=== PATIENT | female | born 2000 | race Two or more races ===

== ENCOUNTER 2025-08-16 03:22 | Inpatient (IN) | payer MEDICAID, OTHER ==
[~2025-08-16] VITALS: Ht 160 cm; Wt 80.0 kg
--- NOTE | 2025-08-16 03:58 | DVH ---
CHEST RADIOGRAPH Indication: cp Technique: Single frontal view of the chest was obtained Comparison: None FINDINGS: Lines and Tubes: None Lungs: No focal consolidation. Pleura: No effusion. No pneumothorax. Cardiomediastinal contours: Unremarkable Bones: No acute osseous abnormality. IMPRESSION: No acute cardiopulmonary disease.
[2025-08-16 04:14] LABS: Hematocrit 41.4 % (36.0-46.0); Hemoglobin 14.1 g/dL (12.2-16.2); Mean Corpuscular Hemoglobin 31.4 pg (28.0-32.0); Mean Corpuscular Volume 92.1 fL (80.0-100.0); Nucleated Red Blood Cells % 0.0 %
[2025-08-16 04:33] LABS: Chloride 106 mmol/L (98-107); Potassium 4.0 mmol/L (3.5-5.1); Sodium 141 mmol/L (136-145)
[2025-08-16 04:34] LABS: Anion Gap 9 (5-15); Carbon Dioxide 26 mmol/L (20-31)
[2025-08-16 04:35] LABS: Calcium 9.3 mg/dL (8.7-10.4)
[2025-08-16 04:39] LABS: Glucose 86 mg/dL (74-106)
[2025-08-16 04:40] LABS: BUN/Creatinine Ratio 14.5 (10.0-20.0); Blood Urea Nitrogen 10 mg/dL (9-23)
--- NOTE | 2025-08-16 04:46 | ECG ---
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
--- NOTE | 2025-08-16 05:19 | ED.PDOC ---
History of Present Illness HPI Comments 23-year-old female who presents to the emergency department with chest pain that woke her from her sleep. Patient has started a proximally 15 minutes prior to arrival. Present left side of her chest, squeezing like in quality, 7/10 in severity, nonradiating, has been constant since this started. Patient denies any recent illness. She denies any associated lightheadedness, dizziness, palpitations, shortness of breath or diaphoresis associated with the chest pain. No recent travel. No recent procedures. She does have an IUD in place. She has a history of asthma however she states his pain is not similar to asthma symptoms. At this time she does not have a PCP. She has no family history of coronary artery disease. She denies any drug, alcohol,, vaping. REVIEW OF SYSTEMS: General: No fever, no chills, HEENT: No neck pain, no blurred vision Cardiac: + chest pain. No palpitations. Lungs: No shortness of breath, GI: No abdominal pain, no vomiting Musculoskeletal: No joint pain , no back pain Skin: No rash, no wound Neuro: No headache, no dizziness, no syncope PHYSICAL EXAM: General: Awake, alert and oriented. No acute distress. Skin: Skin in warm, dry and intact without rashes or lesions. HEENT: The head is normocephalic and atraumatic. Conjunctivae are clear without exudates or hemorrhage. Sclera is non-icteric. Neck: Normal range of motion. No JVD. Cardiac: Regular rate Respiratory: No signs of respiratory distress. No Stridor. Extremities: Upper and lower extremities are atraumatic in appearance without deformity. Neurological: The patient is awake, alert and oriented to person, place, and time with normal speech. Speech is clear. There is no facial asymmetry. Psychiatric: Patient appears anxious and has a tearful affect Chief Complaint: Chest Pain Time Seen by MD: 03:41 Allergies: Coded Allergies: NO KNOWN ALLERGIES (Unverified , 08/16/25) Mode of Arrival: Ambulatory EKG EKG : Comments Sinus rhythm, rate of 72, no STEMI. Differential Dx Considerations may include: Differential diagnoses considered include acute ischemic coronary syndrome, aortic dissection, cardiac tamponade, mediastinitis, pulmonary embolus, pneumothorax, tension pneumothorax, esophageal rupture, coronary artery vasospasm, myocarditis, pericarditis, pneumonia, pulmonary edema, esophageal tear, pancreatitis, aortic stenosis, dilated cardiomyopathy, hypertrophic cardiomyopathy, mitral valve prolapse, malignancy, pleuritis, pneumomediastinum, primary pulmonary hypertension, cholecystitis, esophageal spasm, esophagus, gastritis, GERD, peptic ulcer disease, costochondritis, fibromyalgia, rib fracture, herpes zoster, radicular syndromes, thoracic outlet syndrome, somatization. X-Ray, Labs, Meds, VS Vital Signs Date Time Temp Pulse Resp B/P (MAP) Pulse Ox O2 Delivery O2 Flow Rate FiO2 08/16/25 06:55 102 20 117/79 (92) 100 08/16/25 06:25 80 08/16/25 05:53 98.1 88 16 125/76 (92) 99 98.1 08/16/25 05:53 88 16 99 Room Air 08/16/25 05:44 18 99 Room Air* 0 21 08/16/25 04:42 78 08/16/25 03:31 72 08/16/25 03:26 97.2 93 20 138/105 100 97.2 Lab Test 08/16/25 07:11 08/16/25 04:38 08/16/25 03:49 Range/Units Erythrocyte Sedimentation Rate 5 0-20 mm/hr Hemoglobin A1c 4.7 <5.7 % A1C Phosphorus Level 2.9 2.4-5.1 mg/dL Magnesium Level 2.1 1.6-2.6 mg/dL Troponin I High Sensitivity < 3 L 97 *H < 3 L </=34 ng/L C-Reactive Protein High Sensitivity 0.06 <1.0 mg/dL Triglycerides Level 95 < 150 mg/dL Cholesterol Level 154 < 200 mg/dL LDL Cholesterol 88 < 100 mg/dL HDL Cholesterol 58 40-59 mg/dL Thyroid Stimulating Hormone (TSH) 2.41 0.55-4.78 uIU/mL D-Dimer, Quantitative < 0.19 0.0-0.49 mg/L FEU White Blood Count 11.4 H 4.4-10.8 10^3/uL Red Blood Count 4.49 4.0-5.20 10^6/uL Hemoglobin 14.1 12.2-16.2 g/dL Hematocrit 41.4 36.0-46.0 % Mean Corpuscular Volume 92.1 80.0-100.0 fL Mean Corpuscular Hemoglobin 31.4 28.0-32.0 pg Mean Corpuscular Hemoglobin Concent 34.1 32.0-36.0 g/dL Red Cell Distribution Width 13.2 11.8-14.3 % Platelet Count 385 140-450 10^3/uL Mean Platelet Volume 7.4 6.9-10.8 fL Neutrophils (%) (Auto) 70.4 37.0-80.0 % Lymphocytes (%) (Auto) 18.8 10.0-50.0 % Monocytes (%) (Auto) 9.4 0.0-12.0 % Eosinophils (%) (Auto) 0.9 0.0-7.0 % Basophils (%) (Auto) 0.5 0.0-2.0 % Neutrophils # (Auto) 8.1 1.6-8.6 10 ^3/uL Lymphocytes # (Auto) 2.2 0.4-5.4 10 ^3/uL Monocytes # (Auto) 1.1 0-1.3 10 ^3/uL Eosinophils # (Auto) 0.1 0-0.8 10 ^3/uL Basophils # (Auto) 0.1 0-0.2 10 ^3/uL Nucleated Red Blood Cells 0.0 % Sodium Level 141 136-145 mmol/L Potassium Level 4.0 3.5-5.1 mmol/L Chloride Level 106 98-107 mmol/L Carbon Dioxide Level 26 20-31 mmol/L Anion Gap 9 5-15 Blood Urea Nitrogen 10 9-23 mg/dL Creatinine 0.69 0.550-1.02 mg/dL Glomerular Filtration Rate Calc 125 >90 mL/min BUN/Creatinine Ratio 14.5 10.0-20.0 Serum Glucose 86 74-106 mg/dL Calcium Level 9.3 8.7-10.4 mg/dL B-Type Natriuretic Peptide 3.37 0-100 pg/mL Current Medications Medications (Trade) Dose Ordered Sig/Pablito Route Start Time Stop Time Status Last Admin Aspirin 324 mg ONCE ONCE PO 08/16/25 04:45 08/16/25 04:46 DC 08/16/25 06:13 Acetaminophen (Tylenol Tablet Or Capsule) 1,000 mg ONCE ONCE PO 08/16/25 04:45 08/16/25 04:46 DC 08/16/25 06:13 Al Hydrox/Mg Hydrox/Simethicone (Maalox Plus) 30 ml ONCE ONCE PO 08/16/25 04:45 08/16/25 04:46 DC 08/16/25 06:12 Lidocaine HCl (Xylocaine 2% Viscous) 10 ml ONCE ONCE PO 08/16/25 04:45 08/16/25 04:46 DC 08/16/25 06:12 Albuterol (Ventolin Medneb) 2.5 mg ONCE ONCE NEB 08/16/25 05:15 08/16/25 05:20 DC 08/16/25 05:44 Ondansetron HCl (Zofran) 4 mg ONCE ONCE IV 08/16/25 07:00 08/16/25 07:01 DC 08/16/25 07:06 PATIENT: ZAYRA TOWNSEND ACCT: [id number] UNIT: [id number] : 2000 LOC: ER ROOM / BED: / AGE / SEX: 24 / F ADM STATUS: REG ER SERVICE 0338 ORDERING PHYSICIAN: ASHLEY VICTORIA MD PROCEDURE(s): CXR1 - CHEST XRAY 1 VIEW REASON: cp ORDER NUMBER(s): [id number], ACCESSION NUMBER(s): [id number] CHEST RADIOGRAPH Indication: cp Technique: Single frontal view of the chest was obtained Comparison: None FINDINGS: Lines and Tubes: None Lungs: No focal consolidation. Pleura: No effusion. No pneumothorax. Cardiomediastinal contours: Unremarkable Bones: No acute osseous abnormality. IMPRESSION: No acute cardiopulmonary disease. Time of 1ST Reevaluation: 05:18 Reevaluation 1ST: Unchanged Patient Education/Counseling: Need For Follow Up Family Education/Counseling: No Family Present SEPSIS Sepsis Screen Date sepsis recognized/suspect: Aug 16, 2025 Time Sepsis recognized/suspect: 0326 Recent Procedure: No On Antibiotic Therapy: No Respiratory Rate >20: No Heart Rate >90: Yes Temp<36 C (96.8 F) or >38.3 C: No SBP <90 or MAP <65 mmHG: No New Acute Mental Status Change: No Is the patient on CPAP, BIPAP,: No Physician Orders Chest Xray 1 View (08/16/25 03:38) Vital Signs Q1HR (08/16/25 03:38) Timing Inspector (08/16/25 ) Vital Signs Date Time Temp Pulse Resp B/P (MAP) Pulse Ox O2 Delivery O2 Flow Rate FiO2 08/16/25 06:55 102 20 117/79 (92) 100 08/16/25 06:25 80 08/16/25 05:53 98.1 88 16 125/76 (92) 99 98.1 08/16/25 05:53 88 16 99 Room Air 08/16/25 05:44 18 99 Room Air* 0 21 08/16/25 04:42 78 08/16/25 03:31 72 08/16/25 03:26 97.2 93 20 138/105 100 97.2 Laboratory Tests Test 08/16/25 03:49 White Blood Count 11.4 10^3/uL (4.4-10.8) H Departure 1 Departure Time of Disposition: 05:55 Impression: Primary Impression: Chest pain Additional Impression: Elevated troponin Disposition: ADMITTED INPATIENT Condition: Stable Comments 24-year-old female who presented with chest pain. Elevated troponin. Patient admitted to hospitalist service for further treatment, evaluation and monitoring. Critical Care Note Critical Care Time?: No Stability Stability form required: No Heart Score Heart Score: Heart Score Response (Comments) Value History Slightly Suspicious 0 EKG Normal 0 Age <45 0 Risk Factors No known risk factors 0 Troponin Normal limit 0 Total 0 ASHLEY VICTORIA MD Aug 16, 2025 05:19
[2025-08-16] MEDS: ALBUTEROL SULF 2.5 MG/0.5ML(0.5%) NEB SOLN NEB ONE (05:44)
[2025-08-16] MEDS: LIDOCAINE VISCOUS 2% 15ML UD PO ONE (06:12)
[2025-08-16] MEDS: MAALOX PLUS or MAALOX 30 ML PO ONE (06:12)
[2025-08-16] MEDS: ACETAMINOPHEN 500 MG TAB or CAP PO ONE (06:13)
--- NOTE | 2025-08-16 06:39 | ECG ---
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
[2025-08-16] MEDS: ONDANSETRON HCL 4 MG/2 ML VIAL IV ONE (07:06)
[2025-08-16] MEDS ORDERED: MORPHINE SULFATE INJ 2 MG/ml SYRG IV PRN (08:30)
[2025-08-16] MEDS ORDERED: ONDANSETRON HCL 4 MG/2 ML VIAL IV PRN (08:30)
[2025-08-16] MEDS ORDERED: ACETAMINOPHEN 325 MG TAB PO PRN (08:30)
[2025-08-16] MEDS ORDERED: DOCUSATE SOD 100 MG CAP PO PRN (08:30)
--- NOTE | 2025-08-16 08:31 | DVHHP2 ---
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 Patient states the pain woke her up from her sleep. She tried drinking water to alleviate the pain with no success. She states the pain worsened prompting her to come to the hospital. She describes the pain as sharp and then transitioned to a burning pain, with associated nausea. At time of assessment she states her chest pain has improved after receiving medications from the ER. Pulmonary: Asthma Rheumatologic: Other ([place]asaki) Smoke: No ALCOHOL: none Drugs: None Lives: with Family Domestic Violence: Neg Review of Systems Constitutional: No: Fever, Chills, Sweats, Weakness, Malaise, Other Eyes: No: Pain, Vision change, Conjunctivae inflammation, Eyelid inflammation, Other, Redness ENT: No: Ear pain, Ear discharge, Nose pain, Nose discharge, Nose congestion, Mouth pain, Mouth swelling, Throat pain, Throat swelling, Other Respiratory: No: Cough, Dry, Shortness of breath, SOB with excertion, Wheezing, Hemoptysis, Pleuritic Pain, Sputum, Wheezing, Other Cardiovascular: Chest Pain; No: Palpitations, Orthopnea, Paroxysmal Noc. Dyspnea, Edema, Lt Headedness, Other Gastrointestinal: Nausea; No: Vomiting, Abdominal Pain, Diarrhea, Constipation, Melena, Hematochezia, Other Genitourinary: No Dysuria, No Frequency, No Incontinence, No Hematuria, No Retention, No Other Musculoskeletal: No: other, neck pain, shoulder pain, arm pain, back pain, hand pain, leg pain, foot pain Skin: No: Rash, Lesions, Jaundice, Bruising, Other Neurological: No: Weakness, Numbness, Incoordination, Change in speech, Confusion, Seizures, Other Allergies: Coded Allergies: NO KNOWN ALLERGIES (Unverified , 08/16/25) Medications Current Medications Medications Dose Ordered Sig/Pablito Route Start Time Stop Time Status Last Admin Dose Admin Acetaminophen/ Hydrocodone Bitart 1 tab Q4HP PRN PO 08/16/25 08:30 UNV Ondansetron HCl 4 mg Q4HP PRN IV 08/16/25 08:30 UNV Docusate Sodium 100 mg BIDPRN PRN PO 08/16/25 08:30 UNV Acetaminophen 650 mg Q6HP PRN PO 08/16/25 08:30 UNV Nitroglycerin 0.4 mg Q5MINP PRN SL 08/16/25 08:30 UNV Morphine Sulfate 2 mg Q30M PRN IV 08/16/25 08:30 UNV Exam Vital Signs Vital Signs Date Time Temp Pulse Resp B/P (MAP) Pulse Ox O2 Delivery O2 Flow Rate FiO2 08/16/25 06:55 102 20 117/79 (92) 100 08/16/25 05:53 98.1 98.1 08/16/25 05:53 Room Air 08/16/25 05:44 0 21 General Appearance: Alert, Oriented X3, Cooperative, mild distress HEENT: Atraumatic, PERRLA Respiratory: Clear to auscultation, Normal air movement Cardiovascular: Regular rate, Normal S1, Normal S2, No murmurs Abdominal: Normal bowel sounds, Soft, No tenderness Extremities: No clubbing, No cyanosis, No edema, Normal pulses Skin: No rashes, No breakdown, No significant lesion Neuro: Normal gait, Normal speech, Strength at 5/5 X4 ext, Normal tone Psych/Mental Status: Mental status NL, Mood NL Labs/Xrays Labs Test 08/16/25 07:11 08/16/25 04:38 08/16/25 03:49 Range/Units Erythrocyte Sedimentation Rate 5 0-20 mm/hr Troponin I High Sensitivity < 3 L </=34 ng/L C-Reactive Protein High Sensitivity 0.06 <1.0 mg/dL D-Dimer, Quantitative < 0.19 0.0-0.49 mg/L FEU White Blood Count 11.4 H 4.4-10.8 10^3/uL Red Blood Count 4.49 4.0-5.20 10^6/uL Hemoglobin 14.1 12.2-16.2 g/dL Hematocrit 41.4 36.0-46.0 % Mean Corpuscular Volume 92.1 80.0-100.0 fL Mean Corpuscular Hemoglobin 31.4 28.0-32.0 pg Mean Corpuscular Hemoglobin Concent 34.1 32.0-36.0 g/dL Red Cell Distribution Width 13.2 11.8-14.3 % Platelet Count 385 140-450 10^3/uL Mean Platelet Volume 7.4 6.9-10.8 fL Neutrophils (%) (Auto) 70.4 37.0-80.0 % Lymphocytes (%) (Auto) 18.8 10.0-50.0 % Monocytes (%) (Auto) 9.4 0.0-12.0 % Eosinophils (%) (Auto) 0.9 0.0-7.0 % Basophils (%) (Auto) 0.5 0.0-2.0 % Neutrophils # (Auto) 8.1 1.6-8.6 10 ^3/uL Lymphocytes # (Auto) 2.2 0.4-5.4 10 ^3/uL Monocytes # (Auto) 1.1 0-1.3 10 ^3/uL Eosinophils # (Auto) 0.1 0-0.8 10 ^3/uL Basophils # (Auto) 0.1 0-0.2 10 ^3/uL Nucleated Red Blood Cells 0.0 % Sodium Level 141 136-145 mmol/L Potassium Level 4.0 3.5-5.1 mmol/L Chloride Level 106 98-107 mmol/L Carbon Dioxide Level 26 20-31 mmol/L Anion Gap 9 5-15 Blood Urea Nitrogen 10 9-23 mg/dL Creatinine 0.69 0.550-1.02 mg/dL Glomerular Filtration Rate Calc 125 >90 mL/min BUN/Creatinine Ratio 14.5 10.0-20.0 Serum Glucose 86 74-106 mg/dL Calcium Level 9.3 8.7-10.4 mg/dL B-Type Natriuretic Peptide 3.37 0-100 pg/mL CHEST RADIOGRAPH FINDINGS: Lines and Tubes: None Lungs: No focal consolidation. Pleura: No effusion. No pneumothorax. Cardiomediastinal contours: Unremarkable Bones: No acute osseous abnormality. IMPRESSION: No acute cardiopulmonary disease. SEPSIS Sepsis Screen Date sepsis recognized/suspect: Aug 16, 2025 Time Sepsis recognized/suspect: 0553 Recent Procedure: No On Antibiotic Therapy: No Respiratory Rate >20: No Heart Rate >90: No Temp<36 C (96.8 F) or >38.3 C: No SBP <90 or MAP <65 mmHG: No New Acute Mental Status Change: No Is the patient on CPAP, BIPAP,: No Physician Orders Chest Xray 1 View (08/16/25 03:38) Vital Signs Q1HR (08/16/25 03:38) Tobacco Farmworker (08/16/25 ) Electrocardigram (08/16/25 06:38) Admit (08/16/25 08:24) Code Status (08/16/25 08:24) Hydrocodone-Acet 5/325mg Tab ([place] 5/32 (08/16/25 08:30) Ondansetron Hcl (Zofran) (08/16/25 08:30) Docusate Sodium Capsule (Colace Capsule) (08/16/25 08:30) Complete Blood Count (08/17/25 04:00) Comprehensive Metabolic Panel (08/17/25 04:00) Echo 2d Mode Cardiac Dop (08/16/25 08:24) Condition: Serious (08/16/25 08:24) Acetaminophen Tablet (Tylenol Tablet) (08/16/25 08:30) Nitroglycerin Sublingual (Ntrostat Subli (08/16/25 08:30) Morphine Sulfate Injection (08/16/25 08:30) Stat Ekg For Chest Pain (08/16/25 08:24) Notify Md Of Changes From Base (08/16/25 08:24) Wallpaper Printer For 24 Hours (08/16/25 08:24) Emergency Dysrhythmia Protocol (08/16/25 08:24) Rhythm Strips Once Every Shift (08/16/25 08:24) Oxygen By Nasal Cannula (08/16/25 08:24) * Cardiology Consult (08/16/25 08:24) Vital Signs Date Time Temp Pulse Resp B/P (MAP) Pulse Ox O2 Delivery O2 Flow Rate FiO2 08/16/25 06:55 102 20 117/79 (92) 100 08/16/25 06:25 80 08/16/25 05:53 98.1 88 16 125/76 (92) 99 98.1 08/16/25 05:53 88 16 99 Room Air 08/16/25 05:44 18 99 Room Air* 0 21 08/16/25 04:42 78 08/16/25 03:31 72 08/16/25 03:26 97.2 93 20 138/105 100 97.2 Laboratory Tests Test 08/16/25 03:49 White Blood Count 11.4 10^3/uL (4.4-10.8) H Medications Medications Dose Ordered Sig/Pablito Route Start Time Stop Time Status Last Admin Dose Admin Acetaminophen 1,000 mg ONCE ONCE PO 08/16/25 04:45 08/16/25 04:46 DC 08/16/25 06:13 1,000 MG Al Hydrox/Mg Hydrox/Simethicone 30 ml ONCE ONCE PO 08/16/25 04:45 08/16/25 04:46 DC 08/16/25 06:12 30 ML Albuterol 2.5 mg ONCE ONCE NEB 08/16/25 05:15 08/16/25 05:20 DC 08/16/25 05:44 2.5 MG Aspirin 324 mg ONCE ONCE PO 08/16/25 04:45 08/16/25 04:46 DC 08/16/25 06:13 324 MG Lidocaine HCl 10 ml ONCE ONCE PO 08/16/25 04:45 08/16/25 04:46 DC 08/16/25 06:12 10 ML Ondansetron HCl 4 mg ONCE ONCE IV 08/16/25 07:00 08/16/25 07:01 DC 08/16/25 07:06 4 MG Assessment/Plan Assessment/Plan Assessment: Elevated troponin, Possible pericarditis, Leukocytosis, Plan: Admit to Tele, Cardiology consult, ECHO, TSH, A1c, Lipid panel, IV hydration, Plan discussed with: Patient My Orders Orders - LOUISE KURTZ Procedure Category Date Status Time Admit ADMIT 08/16/25 Transmitted 08:24 Code Status CODE 08/16/25 Transmitted 08:24 Hydrocodone-Acet PHA 08/16/25 Logged 5/325mg Tab ([place] 08:30 Ondansetron Hcl PHA 08/16/25 Logged (Zofran) 08:30 Docusate Sodium PHA 08/16/25 Transmitted Capsule (Colace 08:30 Complete Blood Count LAB 08/17/25 Verified 04:00 Comprehensive LAB 08/17/25 Verified Metabolic Panel 04:00 Echo 2d Mode Cardiac US 08/16/25 Logged DOP 08:24 Condition: Serious YVONNE 08/16/25 In Process 08:24 Acetaminophen Tablet PHA 08/16/25 Logged (Tylenol Tablet) 08:30 Nitroglycerin PHA 08/16/25 Logged Sublingual (Ntrostat 08:30 Morphine Sulfate PHA 08/16/25 Logged Injection 08:30 Stat Ekg For Chest YVONNE 08/16/25 In Process Pain 08:24 Notify Md Of Changes [facility] 08/16/25 In Process From Base 08:24 Wallpaper Printer For [facility] 08/16/25 In Process 24 Hours 08:24 Emergency Dysrhythmia [facility] 08/16/25 In Process Protocol 08:24 Rhythm Strips Once [facility] 08/16/25 In Process Every Shift 08:24 Oxygen By Nasal RT 08/16/25 Transmitted Cannula 08:24 * Cardiology Consult CONS 08/16/25 Transmitted 08:24 Date of Service: Aug 16, 2025 Billing Provider: LOUISE KURTZ Common Visit Codes: [id number] INP/OBS CARE (MOD) LOUISE KURTZ Aug 16, 2025 08:31
[2025-08-16 09:11] VITALS: PULSE 74; RESP 20; O2SAT 98
[2025-08-16 09:56] LABS: Triglycerides 95 mg/dL (< 150)
[2025-08-16 09:57] LABS: HDL Cholesterol 58 mg/dL (40-59)
[2025-08-16 09:58] LABS: Cholesterol 154 mg/dL (< 200)
[2025-08-16] MEDS: HYDROcodone-ACET 5/325MG TAB PO PRN (10:37)
[2025-08-16 11:04] VITALS: BP 113/68; PULSE 67; RESP 18; TEMP 98.1; O2SAT 98
--- NOTE | 2025-08-16 11:19 | ECG ---
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
[2025-08-16 12:20] VITALS: PULSE 66; RESP 18; O2SAT 98
[2025-08-16 13:00] VITALS: BP 108/71; PULSE 73; RESP 16; TEMP 97.7; O2SAT 100
[2025-08-16] MEDS ORDERED: guaiFENesin-DM 100/10mg/5ml SYR PO PRN (13:00)
[2025-08-16 13:18] LABS: Cannabinoid Screen, Urine Neg (NEGATIVE); Opiate Scree,Urine Neg (NEGATIVE)
[2025-08-16 13:22] LABS: Magnesium 2.1 mg/dL (1.6-2.6)
[2025-08-16 13:45] LABS: Amphetamine Screen, Urine Neg (NEGATIVE); Barbiturate Scree,Urine Neg (NEGATIVE); Benzodiazephine Screen, Urine Neg (NEGATIVE); Cocaine Screen, Urine Neg (NEGATIVE); Phencyclidine Screen, Urine Neg (NEGATIVE)
[2025-08-16 13:53] LABS: INR 1.12 (0.9-1.15); Partial Thromboplastin Time 30.5 SEC (24.5-34.5); Prothrombin Time 11.7 sec (9.3-11.8)
[2025-08-16] MEDS: PANTOPRAZOLE 40 MG/10 ML VIAL INJ IV ONE (14:00)
[2025-08-16 14:02] LABS: Alanine Aminotransferase 15.0 U/L (7-40); Albumin 4.6 g/dL (3.2-4.8); Alkaline Phosphatase 75.0 U/L (46-116); Bilirubin, Direct 0.2 mg/dL (<0.3); Bilirubin, Total 0.6 mg/dL (0.2-1.0); Total Protein 7.6 g/dL (5.7-8.2)
--- NOTE | 2025-08-16 15:18 | DVHINCON2 ---
Date Seen: Aug 16, 2025 Referring Physician Gina Hermosillo NP Reason for Consultation Elevated troponin History of Present Illness Laura Jones is a 24-year-old female patient who presents to the ED with chief complaint of constant squeezing/burning retrosternal chest pain which woke her up at 2:30 a.m. on 08/16/2025 and lasted until 6:30 a.m. when she visited the emergency department and received medication(received Maalox and lidocaine, four aspirin in two Tylenol) intensity was 9-10/10, improved mildly when applying pressure to her chest and completely relieved with medication provided in emergency department, no worsening precipitating factors, associated with palpitation. Patient also reports episode of loss of consciousness after she was given in peripheral IV with prodromes (blurry vision, dizziness, feeling faint). She says that she has never felt these symptoms previously. Denies fever, chills, sick contacts, dyspnea, flu-like symptoms or motor or sensory deficits. Cardiology was consulted for elevated troponin (<3-97-<3). Past medical history: Asthma, Kawasaki in three opportunities (age [age], [age] in 11 years of age), per patient she was treated immediately, ovarian cyst, she presents normal periods (periods last five days, 30 day cycle, she has a copper IUD) she is sexually active with one partner for the past two years negative STIs (she tests once every three months). Surgical history: Denies Family history: Breast cancer in grandmother Social history: Lives in [place] with family (next of kin is mother). Denies current tobacco, alcohol and other drug abuse Allergies: Denies Home medication: Albuterol PRN Patient seen and examined at bedside. Currently has no new complaints. Past Medical History Per HPI Past Surgical History Per HPI Family History: FH: lupus G8 MOTHER Family History Per HPI Social History Per HPI Allergies: Coded Allergies: NO KNOWN ALLERGIES (Unverified , 08/16/25) Allergies Per HPI Current Medications Current Medications Medications (Trade) Dose Ordered Sig/Pablito Route PRN Reason Start Time Stop Time Status Last Admin Acetaminophen/ Hydrocodone Bitart ([place] 5/325MG Tab) 1 tab Q4HP PRN PO MODERATE PAIN (4-6 PAIN SCALE) 08/16/25 08:30 08/16/25 10:37 Ondansetron HCl (Zofran) 4 mg Q4HP PRN IV NAUSEA / VOMITING 08/16/25 08:30 Docusate Sodium (Colace Capsule) 100 mg BIDPRN PRN PO FOR CONSTIPATION 08/16/25 08:30 Acetaminophen (Tylenol Tablet) 650 mg Q6HP PRN PO PAIN SCALE 1-3 OR TEMP>100.4 08/16/25 08:30 Nitroglycerin (Ntrostat Sublingual) 0.4 mg Q5MINP PRN SL FOR CHEST PAIN 08/16/25 08:30 Morphine Sulfate 2 mg Q30M PRN IV FOR CHEST PAIN 08/16/25 08:30 Aspirin 81 mg DAILY PO 08/17/25 10:00 Atorvastatin Calcium (Lipitor) 40 mg HS PO 08/16/25 22:00 Pantoprazole Sodium (Protonix) 40 mg BID IV 08/16/25 22:00 Guaifenesin/ Dextromethorphan (Robitussin-Dm Liquid) 10 ml Q6HPRN PRN PO FOR COUGH 08/16/25 13:00 Review of Systems Per HPI Vital Signs Vital Signs Date Time Temp Pulse Resp B/P (MAP) Pulse Ox O2 Delivery O2 Flow Rate FiO2 08/16/25 13:00 97.7 73 16 108/71 (83) 100 97.7 08/16/25 09:11 Room Air* 0 21 Physical Exam Patient lying in bed, in no acute distress General: Lucid, afebrile, mucosae are moist Cardiovascular: Normal S1 and S2. No murmurs, gallops or rubs Respiratory: Normal ventilation mechanics. Clear lung sounds on auscultation Abdomen: Soft, nontender, no organomegaly, normal bowel sounds MSK/skin: Mobilizes 4 limbs. Skin is dry and warm Neurological: Oriented in 3 spheres. No motor no sensitive deficits. Pupils are isocoric and reactive Labs/Diagnostic Data Labs Test 08/16/25 13:19 08/16/25 12:38 08/16/25 07:11 08/16/25 04:38 Range/Units Prothrombin Time 11.7 9.3-11.8 sec Prothrombin Time INR 1.12 0.9-1.15 Activated Partial Thromboplast Time 30.5 24.5-34.5 SEC Total Bilirubin 0.6 0.2-1.0 mg/dL Direct Bilirubin 0.2 <0.3 mg/dL Aspartate Amino Transferase (AST) 17 13-40 U/L Alanine Aminotransferase (ALT) 15 7-40 U/L Alkaline Phosphatase 75 46-116 U/L Total Protein 7.6 5.7-8.2 g/dL Albumin 4.6 3.2-4.8 g/dL Vitamin B12 Level 633 211-911 pg/mL Vitamin D 25-Hydroxy 10.4 L 30.0-100 ng/mL Urine Opiates Screen Neg NEGATIVE Urine Fentanyl Screen Neg NEGATIVE Urine Barbiturates Screen Neg NEGATIVE Urine Phencyclidine Screen Neg NEGATIVE Urine Amphetamines Screen Neg NEGATIVE Urine Benzodiazepines Screen Neg NEGATIVE Urine Cocaine Screen Neg NEGATIVE Urine Cannabinoids Screen Neg NEGATIVE Erythrocyte Sedimentation Rate 5 0-20 mm/hr Hemoglobin A1c 4.7 <5.7 % A1C Phosphorus Level 2.9 2.4-5.1 mg/dL Magnesium Level 2.1 1.6-2.6 mg/dL Troponin I High Sensitivity < 3 L </=34 ng/L C-Reactive Protein High Sensitivity 0.06 <1.0 mg/dL Triglycerides Level 95 < 150 mg/dL Cholesterol Level 154 < 200 mg/dL LDL Cholesterol 88 < 100 mg/dL HDL Cholesterol 58 40-59 mg/dL Thyroid Stimulating Hormone (TSH) 2.41 0.55-4.78 uIU/mL D-Dimer, Quantitative < 0.19 0.0-0.49 mg/L FEU Test 08/16/25 03:49 Range/Units White Blood Count 11.4 H 4.4-10.8 10^3/uL Red Blood Count 4.49 4.0-5.20 10^6/uL Hemoglobin 14.1 12.2-16.2 g/dL Hematocrit 41.4 36.0-46.0 % Mean Corpuscular Volume 92.1 80.0-100.0 fL Mean Corpuscular Hemoglobin 31.4 28.0-32.0 pg Mean Corpuscular Hemoglobin Concent 34.1 32.0-36.0 g/dL Red Cell Distribution Width 13.2 11.8-14.3 % Platelet Count 385 140-450 10^3/uL Mean Platelet Volume 7.4 6.9-10.8 fL Neutrophils (%) (Auto) 70.4 37.0-80.0 % Lymphocytes (%) (Auto) 18.8 10.0-50.0 % Monocytes (%) (Auto) 9.4 0.0-12.0 % Eosinophils (%) (Auto) 0.9 0.0-7.0 % Basophils (%) (Auto) 0.5 0.0-2.0 % Neutrophils # (Auto) 8.1 1.6-8.6 10 ^3/uL Lymphocytes # (Auto) 2.2 0.4-5.4 10 ^3/uL Monocytes # (Auto) 1.1 0-1.3 10 ^3/uL Eosinophils # (Auto) 0.1 0-0.8 10 ^3/uL Basophils # (Auto) 0.1 0-0.2 10 ^3/uL Nucleated Red Blood Cells 0.0 % Sodium Level 141 136-145 mmol/L Potassium Level 4.0 3.5-5.1 mmol/L Chloride Level 106 98-107 mmol/L Carbon Dioxide Level 26 20-31 mmol/L Anion Gap 9 5-15 Blood Urea Nitrogen 10 9-23 mg/dL Creatinine 0.69 0.550-1.02 mg/dL Glomerular Filtration Rate Calc 125 >90 mL/min BUN/Creatinine Ratio 14.5 10.0-20.0 Serum Glucose 86 74-106 mg/dL Calcium Level 9.3 8.7-10.4 mg/dL B-Type Natriuretic Peptide 3.37 0-100 pg/mL Assessment Rule out ACS Ruled out pericarditis Noncardiac chest pain - likely GERD Situational/vasovagal syncope History of Kawasaki in three opportunities Asthma with no exacerbation Ovarian cyst Plan/Recommendation EKG shows normal sinus rhythm with no ST alteration. Troponin presents one mildly elevated value (<3 - 97 - <3). Noncardiac chest pain (burning squeezing which was continues in lasted for 4 hours and improved with pressure and Maalox/lidocaine) Ordered echocardiogram. Mild leukocytosis (11.4) ESR 5, CRP 0.06 (both negative). BNP and D-dimer is negative as well. Chest pain likely secondary to GERD. Continue with pantoprazole. Goals of care discussed with patient for over 18 minutes: Full code status Discussed plan with Dr. Myles, patient, family and nurses: We will ordered echocardiogram, hold off on therapeutic heparin, chest pain is likely secondary to GERD. Further management will be decided after obtaining echocardiogram. Admit patient to telemetry. Plan discussed with: Patient, Other (Aunt and nurses) NYHA Physical activity limitations: Class1(None)absent sob, Date of Service: Aug 16, 2025 Billing Provider: TREY MYLES Sr., MD Cardiology Common Codes: [id number] INP/OBS CARE (High) Cardiology Secondary Visit Cod: [id number] CARE PLAN 30 MINUTES JARON DIAZ RESIDENT Aug 16, 2025 15:18
[2025-08-16 16:55] VITALS: BP 116/64; PULSE 76; RESP 15; TEMP 97.8; O2SAT 99
[2025-08-16] MEDS: SODIUM CHLORIDE 0.9% 1,000 ML IV ONE (17:31)
[2025-08-16 21:00] VITALS: BP 111/71; PULSE 73; RESP 17; TEMP 97.9; O2SAT 100
[2025-08-16] MEDS: PANTOPRAZOLE 40 MG/10 ML VIAL INJ IV SCH (21:26)
[2025-08-16] MEDS: ATORVASTATIN 20 MG TAB PO SCH (21:29)
[2025-08-16] MEDS: NITROGLYCERIN 0.4 MG SL TAB SL PRN (22:15)
[2025-08-17] VITALS (9 sets, daily range): BP systolic 94–114; BP diastolic 54–69; PULSE 61–83; RESP 16–18; TEMP 98.1–98.5; O2SAT 96–99
[2025-08-17 06:04] LABS: Hematocrit 38.1 % (36.0-46.0); Hemoglobin 13.2 g/dL (12.2-16.2); Mean Corpuscular Hemoglobin 31.9 pg (28.0-32.0); Mean Corpuscular Volume 92.0 fL (80.0-100.0); Nucleated Red Blood Cells % 0.1 %
[2025-08-17 06:33] LABS: Alanine Aminotransferase 20 U/L (7-40); Albumin 3.8 g/dL (3.2-4.8); Alkaline Phosphatase 54 U/L (46-116); Anion Gap 8 (5-15); BUN/Creatinine Ratio 12.3 (10.0-20.0); Carbon Dioxide 24 mmol/L (20-31); Potassium 3.8 mmol/L (3.5-5.1); Sodium 140 mmol/L (136-145); Total Protein 6.2 g/dL (5.7-8.2)
[2025-08-17 06:34] LABS: Bilirubin, Total 0.7 mg/dL (0.2-1.0)
[2025-08-17 07:30] LABS: Chloride 108 mmol/L (98-107)
[2025-08-17 07:31] LABS: Blood Urea Nitrogen 9 mg/dL (9-23); Calcium 8.4 mg/dL (8.7-10.4)
[2025-08-17 07:41] LABS: Glucose 86 mg/dL (74-106)
[2025-08-17] MEDS: ERGOCALCIFEROL 50,000 UNIT(1.25MG) CAP PO SCH (09:46)
--- NOTE | 2025-08-17 10:59 | DVHPN2 ---
Subjective Patient is seen and examined at bedside. The patient is still complain of chest pain. Reviewed: Care Plan, H&P, Labs, Medications, Previous Orders, Radiology Changes from previous H/P or p: No Changes Eyes: No Pain, No Vision change, No Conjunctivae inflammation, No Eyelid inflammation, No Other, No Redness ENT: No Ear pain, No Ear discharge, No Nose pain, No Nose discharge, No Nose congestion, No Mouth pain, No Mouth swelling, No Throat pain, No Throat swelling, No Other Cardiovascular: Chest Pain; No Palpitations, No Orthopnea, No Paroxysmal Noc. Dyspnea, No Edema, No Lt Headedness, No Other Respiratory: No Cough, No Dry, No Shortness of breath, No SOB with excertion, No Wheezing, No Hemoptysis, No Pleuritic Pain, No Sputum, No Other Gastrointestinal: Nausea; No Vomiting, No Abdominal Pain, No Diarrhea, No Constipation, No Melena, No Hematochezia, No Other Genitourinary: No Dysuria, No Frequency, No Incontinence, No Hematuria, No Retention, No Other Musculoskeletal: No other, No neck pain, No shoulder pain, No arm pain, No back pain, No hand pain, No leg pain, No foot pain Skin: No Rash, No Lesions, No Jaundice, No Bruising, No Other Objective Vitals Vital Signs Date Time Temp Pulse Resp B/P (MAP) Pulse Ox O2 Delivery O2 Flow Rate FiO2 08/17/25 09:00 98.3 61 16 114/67 (83) 99 98.3 08/16/25 17:00 Room Air* 0 21 Intake/Output Intake and Output 08/17/25 07:00 Intake Total 1240 ml Balance 1240 ml Intake Oral 240 ml IV Total 1000 ml # Voids 1 General Appearance: Alert, Oriented X3, Cooperative, No acute distress HEENT: Atraumatic, PERRLA, EOMI, Mucous membr. moist/pink Neck: Supple Lungs: Clear to auscultation, Normal air movement Cardiovascular: Regular rate, Normal S1, Normal S2, No murmurs, Gallops, Rubs Abdomen: Normal bowel sounds, Soft, No tenderness Neuro: Cranial nerves 3-12 NL Psych/Mental Status: Mental status NL Medications Current Medications Medications Dose Ordered Sig/Pablito Route Start Time Stop Time Status Last Admin Dose Admin Acetaminophen/ Hydrocodone Bitart 1 tab Q4HP PRN PO 08/16/25 08:30 08/16/25 10:37 1 TAB Ondansetron HCl 4 mg Q4HP PRN IV 08/16/25 08:30 Docusate Sodium 100 mg BIDPRN PRN PO 08/16/25 08:30 Acetaminophen 650 mg Q6HP PRN PO 08/16/25 08:30 Nitroglycerin 0.4 mg Q5MINP PRN SL 08/16/25 08:30 08/16/25 22:15 0.4 MG Morphine Sulfate 2 mg Q30M PRN IV 08/16/25 08:30 Aspirin 81 mg DAILY PO 08/17/25 10:00 08/17/25 09:46 81 MG Atorvastatin Calcium 40 mg HS PO 08/16/25 22:00 Pantoprazole Sodium 40 mg BID IV 08/16/25 22:00 08/17/25 09:46 40 MG Guaifenesin/ Dextromethorphan 10 ml Q6HPRN PRN PO 08/16/25 13:00 Ergocalciferol 50,000 unit Q7D PO 08/17/25 09:00 08/17/25 09:46 50,000 UNIT Laboratory Results Laboratory Tests 08/17/25 05:37 Chemistry Test 08/16/25 13:19 08/17/25 05:37 Albumin 4.6 g/dL (3.2-4.8) 3.8 g/dL (3.2-4.8) Total Protein 7.6 g/dL (5.7-8.2) 6.2 g/dL (5.7-8.2) Calcium Level 8.4 mg/dL (8.7-10.4) L Coagulation Test 08/16/25 13:19 Prothrombin Time 11.7 sec (9.3-11.8) Prothrombin Time INR 1.12 (0.9-1.15) Activated Partial Thromboplast Time 30.5 SEC (24.5-34.5) LFT Test 08/16/25 13:19 08/17/25 05:37 Alanine Aminotransferase (ALT) 15 U/L (7-40) 20 U/L (7-40) Alkaline Phosphatase 75 U/L (46-116) 54 U/L (46-116) Aspartate Amino Transferase (AST) 17 U/L (13-40) 16 U/L (13-40) Direct Bilirubin 0.2 mg/dL (<0.3) Total Bilirubin 0.6 mg/dL (0.2-1.0) 0.7 mg/dL (0.2-1.0) Labs and/or images reviewed: Labs reviewed by me Assessment/Plan Assessment/Plan Noncardiac chest pain - likely GERD Rule out ACS Ruled out pericarditis Situational/vasovagal syncope 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 Continuing with pain medication for chest pain. Waiting for echo report Discharge plan This medical document was created using an electronic medical record system with [employer] computerized dictation system. Although this document has been carefully reviewed, there may still be some phonetic and typographical errors. These areas are purely typographical due to imperfections of the software programs, and do not reflect any compromise in the patient's medical care. Plan discussed with: Patient My Orders Orders - LLOYD SWANN MD Procedure Category Date Status Time Guaifenesin-Dextromet PHA 08/16/25 In Process Liquid (Robitussin 13:00 Date of Service: Aug 17, 2025 Billing Provider: LLOYD SWANN MD Common Visit Codes: [id number] INP/OBS CARE(HIGH) LLOYD SWANN MD Aug 17, 2025 10:59
--- NOTE | 2025-08-17 11:33 | DVHPNRES ---
Progress Note Date Seen: Aug 17, 2025 Resident Creating Document: JARON DIAZ RESIDENT Medical Necessity Reason Pt with a Central, PICC or Fol: No Subjective Review of Systems Laura Jones is a 24-year-old female patient who presents to the ED with chief complaint of constant squeezing/burning retrosternal chest pain which woke her up at 2:30 a.m. on 08/16/2025 and lasted until 6:30 a.m. when she visited the emergency department and received medication(received Maalox and lidocaine, four aspirin in two Tylenol) intensity was 9-10/10, improved mildly when applying pressure to her chest and completely relieved with medication provided in emergency department, no worsening precipitating factors, associated with palpitation. Patient also reports episode of loss of consciousness after she was given in peripheral IV with prodromes (blurry vision, dizziness, feeling faint). She says that she has never felt these symptoms previously. Denies fever, chills, sick contacts, dyspnea, flu-like symptoms or motor or sensory deficits. Cardiology was consulted for elevated troponin (<3-97-<3). Past medical history: Asthma, Kawasaki in three opportunities (age [age], [age] in 11 years of age), per patient she was treated immediately, ovarian cyst, she presents normal periods (periods last five days, 30 day cycle, she has a copper IUD) she is sexually active with one partner for the past two years negative STIs (she tests once every three months). Surgical history: Denies Family history: Breast cancer in grandmother Social history: Lives in [place] with family (next of kin is mother). Denies current tobacco, alcohol and other drug abuse Allergies: Denies Home medication: Albuterol PRN Patient seen and examined at bedside. Currently has no new complaints. Awaiting echocardiogram (could not be completed yesterday awaiting for bed) Objective vital signs Vital Sign Date Time Temp Pulse Resp B/P (MAP) Pulse Ox O2 Delivery O2 Flow Rate FiO2 08/17/25 09:00 98.3 61 16 114/67 (83) 99 98.3 08/16/25 17:00 Room Air* 0 21 Total Intake and Output 08/16/25 08/16/25 08/17/25 15:00 23:00 07:00 Intake Total 1240 ml Balance 1240 ml medications Current Medications Medications Dose Ordered Sig/Pablito Route Start Time Stop Time Status Last Admin Dose Admin Acetaminophen/ Hydrocodone Bitart 1 tab Q4HP PRN PO 08/16/25 08:30 08/16/25 10:37 1 TAB Ondansetron HCl 4 mg Q4HP PRN IV 08/16/25 08:30 Docusate Sodium 100 mg BIDPRN PRN PO 08/16/25 08:30 Acetaminophen 650 mg Q6HP PRN PO 08/16/25 08:30 Nitroglycerin 0.4 mg Q5MINP PRN SL 08/16/25 08:30 08/16/25 22:15 0.4 MG Morphine Sulfate 2 mg Q30M PRN IV 08/16/25 08:30 Aspirin 81 mg DAILY PO 08/17/25 10:00 08/17/25 09:46 81 MG Atorvastatin Calcium 40 mg HS PO 08/16/25 22:00 Pantoprazole Sodium 40 mg BID IV 08/16/25 22:00 08/17/25 09:46 40 MG Guaifenesin/ Dextromethorphan 10 ml Q6HPRN PRN PO 08/16/25 13:00 Ergocalciferol 50,000 unit Q7D PO 08/17/25 09:00 08/17/25 09:46 50,000 UNIT Examination Patient lying in bed, in no acute distress General: Lucid, afebrile, mucosae are moist Cardiovascular: Normal S1 and S2. No murmurs, gallops or rubs Respiratory: Normal ventilation mechanics. Clear lung sounds on auscultation Abdomen: Soft, nontender, no organomegaly, normal bowel sounds MSK/skin: Mobilizes 4 limbs. Skin is dry and warm Neurological: Oriented in 3 spheres. No motor no sensitive deficits. Pupils are isocoric and reactive laboratory and microbiology Laboratory Tests 08/17/25 05:37 Test 08/17/25 05:37 Range/Units Serum Glucose 86 74-106 mg/dL Problem List/Assessment/Plan Problem List/Assessment/Plan Assessment Rule out ACS Ruled out pericarditis Noncardiac chest pain - likely GERD Situational/vasovagal syncope History of Kawasaki in three opportunities Asthma with no exacerbation Ovarian cyst Plan/Recommendation EKG shows normal sinus rhythm with no ST alteration. Troponin presents one mildly elevated value (<3 - 97 - <3). Noncardiac chest pain (burning squeezing which was continues in lasted for 4 hours and improved with pressure and Maalox/lidocaine) Ordered echocardiogram. Mild leukocytosis (11.4) ESR 5, CRP 0.06 (both negative). BNP and D-dimer is negative as well. Chest pain likely secondary to GERD. Continue with pantoprazole. Goals of care discussed with patient for over 18 minutes: Full code status Discussed plan with Dr. Falcon, patient, family and nurses: Patient currently on Telemetry. Awaiting echocardiogram, hold off on therapeutic heparin, chest pain is likely secondary to GERD. Further management will be decided after obtaining echocardiogram. Plan discussed with: Patient, Other (Boyfriend, aunt and nurses) My Orders My Orders Orders - JARON DIAZ Procedure Category Date Status Time Urinalysis LAB 08/17/25 Logged 04:00 Ergocalciferol PHA 08/17/25 In Process (Vitamin D 50,000 09:00 Troponin-I Hs LAB 08/17/25 In Process 08:48 Visit Coding Cardiology RES Date of Service: Aug 17, 2025 Billing Provider: TREY FALCON Sr., MD Cardiology Common Codes: [id number] HOSP CARE(High Cardiology Secondary Visit Cod: [id number] CARE PLAN 30 MINUTES JARON DIAZ RESIDENT Aug 17, 2025 11:33
[2025-08-18] VITALS (9 sets, daily range): BP systolic 95–120; BP diastolic 49–76; PULSE 60–84; RESP 16–18; TEMP 97.9–98.4; O2SAT 97–99
--- NOTE | 2025-08-18 10:15 | DVHPNRES ---
Progress Note Date Seen: Aug 18, 2025 Resident Creating Document: JARON DIAZ RESIDENT Medical Necessity Reason Pt with a Central, PICC or Fol: No Subjective Review of Systems Laura Jones is a 24-year-old female patient who presents to the ED with chief complaint of constant squeezing/burning retrosternal chest pain which woke her up at 2:30 a.m. on 08/16/2025 and lasted until 6:30 a.m. when she visited the emergency department and received medication(received Maalox and lidocaine, four aspirin in two Tylenol) intensity was 9-10/10, improved mildly when applying pressure to her chest and completely relieved with medication provided in emergency department, no worsening precipitating factors, associated with palpitation. Patient also reports episode of loss of consciousness after she was given in peripheral IV with prodromes (blurry vision, dizziness, feeling faint). She says that she has never felt these symptoms previously. Denies fever, chills, sick contacts, dyspnea, flu-like symptoms or motor or sensory deficits. Cardiology was consulted for elevated troponin (<3-97-<3). Past medical history: Asthma, Kawasaki in three opportunities (age [age], [age] in 11 years of age), per patient she was treated immediately, ovarian cyst, she presents normal periods (periods last five days, 30 day cycle, she has a copper IUD) she is sexually active with one partner for the past two years negative STIs (she tests once every three months). Surgical history: Denies Family history: Breast cancer in grandmother Social history: Lives in [place] with family (next of kin is mother). Denies current tobacco, alcohol and other drug abuse Allergies: Denies Home medication: Albuterol PRN Patient seen and examined at bedside. Currently has no new complaints. Awaiting echocardiogram report Objective vital signs Vital Sign Date Time Temp Pulse Resp B/P (MAP) Pulse Ox O2 Delivery O2 Flow Rate FiO2 08/18/25 09:00 98.4 65 18 102/58 (73) 98 98.4 08/17/25 20:00 Room Air* 0 21 Total Intake and Output 08/17/25 08/17/25 08/18/25 15:00 23:00 07:00 Intake Total 600 ml 720 ml Balance 600 ml 720 ml medications Current Medications Medications Dose Ordered Sig/Pablito Route Start Time Stop Time Status Last Admin Dose Admin Acetaminophen/ Hydrocodone Bitart 1 tab Q4HP PRN PO 08/16/25 08:30 08/17/25 22:26 1 TAB Ondansetron HCl 4 mg Q4HP PRN IV 08/16/25 08:30 Docusate Sodium 100 mg BIDPRN PRN PO 08/16/25 08:30 Acetaminophen 650 mg Q6HP PRN PO 08/16/25 08:30 Nitroglycerin 0.4 mg Q5MINP PRN SL 08/16/25 08:30 08/16/25 22:15 0.4 MG Morphine Sulfate 2 mg Q30M PRN IV 08/16/25 08:30 Aspirin 81 mg DAILY PO 08/17/25 10:00 08/17/25 09:46 81 MG Atorvastatin Calcium 40 mg HS PO 08/16/25 22:00 Pantoprazole Sodium 40 mg BID IV 08/16/25 22:00 08/17/25 21:45 40 MG Guaifenesin/ Dextromethorphan 10 ml Q6HPRN PRN PO 08/16/25 13:00 Ergocalciferol 50,000 unit Q7D PO 08/17/25 09:00 08/17/25 09:46 50,000 UNIT Examination Patient lying in bed, in no acute distress General: Lucid, afebrile, mucosae are moist Cardiovascular: Normal S1 and S2. No murmurs, gallops or rubs Respiratory: Normal ventilation mechanics. Clear lung sounds on auscultation Abdomen: Soft, nontender, no organomegaly, normal bowel sounds MSK/skin: Mobilizes 4 limbs. Skin is dry and warm Neurological: Oriented in 3 spheres. No motor no sensitive deficits. Pupils are isocoric and reactive laboratory and microbiology Laboratory Tests 08/17/25 05:37 Test 08/17/25 05:37 Range/Units Serum Glucose 86 74-106 mg/dL Problem List/Assessment/Plan Problem List/Assessment/Plan Assessment Rule out ACS Ruled out pericarditis Noncardiac chest pain - likely GERD Situational/vasovagal syncope History of Kawasaki in three opportunities Asthma with no exacerbation Ovarian cyst Plan/Recommendation EKG shows normal sinus rhythm with no ST alteration. Troponin presents one mildly elevated value (<3 - 97 - <3). Noncardiac chest pain (burning squeezing which was continues in lasted for 4 hours and improved with pressure and Maalox/lidocaine) Ordered echocardiogram. Mild leukocytosis (11.4) ESR 5, CRP 0.06 (both negative). BNP and D-dimer is negative as well. Chest pain likely secondary to GERD. Continue with pantoprazole. Goals of care discussed with patient for over 18 minutes: Full code status Discussed plan with Dr. Falcon, patient, family and nurses: Patient currently on Telemetry. Awaiting echocardiogram report, hold off on therapeutic heparin, chest pain is likely secondary to GERD. Further management will be decided after obtaining echocardiogram. Plan discussed with: Patient, Other (Nurses) Visit Coding Cardiology RES Date of Service: Aug 18, 2025 Billing Provider: TREY FALCON Sr., MD Cardiology Common Codes: [id number] HOSP CARE(High Cardiology Secondary Visit Cod: [id number] CARE PLAN 30 MINUTES JARON DIAZ RESIDENT Aug 18, 2025 10:15
[2025-08-18 10:44] LABS: Urine Protein, UAD Negative (Negative)
--- NOTE | 2025-08-18 12:32 | DVHDS2 ---
Discharge Summary Date of Admission Aug 16, 2025 at 08:24 Labs/Diagnostic Data: Laboratory Results Test 08/17/25 10:20 08/17/25 05:39 08/17/25 05:37 08/16/25 13:19 Urine Color Light-yellow (Yellow) Urine Clarity Turbid (Clear) Urine pH 6.0 (5.0-9.0) Urine Specific [place] 1.013 (1.001-1.035) Urine Protein Negative (Negative) Urine Ketones Negative (Negative) Urine Blood Negative /uL (Negative) Urine Nitrite Negative (Negative) Urine Bilirubin Negative (Negative) Urine Urobilinogen Normal mg/dL (Negative) Urine Leukocyte Esterase 1+ /uL (Negative) Urine RBC 2 /hpf (0 - 4) Urine Microscopic WBC 15 /HPF (0-5) Urine Squamous Epithelial Cells Mod /hpf (<5) Urine Bacteria None seen /hpf (None Seen) Urine Glucose Normal mg/dL (Normal) Troponin I High Sensitivity < 3 ng/L (</=34) White Blood Count 5.8 10^3/uL (4.4-10.8) Red Blood Count 4.14 10^6/uL (4.0-5.20) Hemoglobin 13.2 g/dL (12.2-16.2) Hematocrit 38.1 % (36.0-46.0) Mean Corpuscular Volume 92.0 fL (80.0-100.0) Mean Corpuscular Hemoglobin 31.9 pg (28.0-32.0) Mean Corpuscular Hemoglobin Concent 34.6 g/dL (32.0-36.0) Red Cell Distribution Width 13.2 % (11.8-14.3) Platelet Count 332 10^3/uL (140-450) Mean Platelet Volume 7.3 fL (6.9-10.8) Neutrophils (%) (Auto) 50.0 % (37.0-80.0) Lymphocytes (%) (Auto) 38.0 % (10.0-50.0) Monocytes (%) (Auto) 9.1 % (0.0-12.0) Eosinophils (%) (Auto) 2.4 % (0.0-7.0) Basophils (%) (Auto) 0.5 % (0.0-2.0) Neutrophils # (Auto) 2.9 10 ^3/uL (1.6-8.6) Lymphocytes # (Auto) 2.2 10 ^3/uL (0.4-5.4) Monocytes # (Auto) 0.5 10 ^3/uL (0-1.3) Eosinophils # (Auto) 0.1 10 ^3/uL (0-0.8) Basophils # (Auto) 0 10 ^3/uL (0-0.2) Nucleated Red Blood Cells 0.1 % Sodium Level 140 mmol/L (136-145) Potassium Level 3.8 mmol/L (3.5-5.1) Chloride Level 108 mmol/L (98-107) Carbon Dioxide Level 24 mmol/L (20-31) Anion Gap 8 (5-15) Blood Urea Nitrogen 9 mg/dL (9-23) Creatinine 0.73 mg/dL (0.550-1.02) Glomerular Filtration Rate Calc 118 mL/min (>90) BUN/Creatinine Ratio 12.3 (10.0-20.0) Serum Glucose 86 mg/dL (74-106) Calcium Level 8.4 mg/dL (8.7-10.4) Total Bilirubin 0.7 mg/dL (0.2-1.0) Aspartate Amino Transferase (AST) 16 U/L (13-40) Alanine Aminotransferase (ALT) 20 U/L (7-40) Alkaline Phosphatase 54 U/L (46-116) Total Protein 6.2 g/dL (5.7-8.2) Albumin 3.8 g/dL (3.2-4.8) Prothrombin Time 11.7 sec (9.3-11.8) Prothrombin Time INR 1.12 (0.9-1.15) Activated Partial Thromboplast Time 30.5 SEC (24.5-34.5) Direct Bilirubin 0.2 mg/dL (<0.3) Vitamin B12 Level 633 pg/mL (211-911) Vitamin D 25-Hydroxy 10.4 ng/mL (30.0-100) Test 08/16/25 12:38 08/16/25 07:11 08/16/25 04:38 08/16/25 03:49 Urine Opiates Screen Neg (NEGATIVE) Urine Fentanyl Screen Neg (NEGATIVE) Urine Barbiturates Screen Neg (NEGATIVE) Urine Phencyclidine Screen Neg (NEGATIVE) Urine Amphetamines Screen Neg (NEGATIVE) Urine Benzodiazepines Screen Neg (NEGATIVE) Urine Cocaine Screen Neg (NEGATIVE) Urine Cannabinoids Screen Neg (NEGATIVE) Erythrocyte Sedimentation Rate 5 mm/hr (0-20) Hemoglobin A1c 4.7 % A1C (<5.7) Phosphorus Level 2.9 mg/dL (2.4-5.1) Magnesium Level 2.1 mg/dL (1.6-2.6) C-Reactive Protein High Sensitivity 0.06 mg/dL (<1.0) Triglycerides Level 95 mg/dL (< 150) Cholesterol Level 154 mg/dL (< 200) LDL Cholesterol 88 mg/dL (< 100) HDL Cholesterol 58 mg/dL (40-59) Thyroid Stimulating Hormone (TSH) 2.41 uIU/mL (0.55-4.78) D-Dimer, Quantitative < 0.19 mg/L FEU (0.0-0.49) B-Type Natriuretic Peptide 3.37 pg/mL (0-100) Other Laboratory Tests 08/17/25 05:37 Discharge Instruct/Medications Scheduled Pantoprazole Sodium Sesquihydr (Protonix), 40 MG PO DAILY Scheduled PRN Ibuprofen (Ibuprofen), 1 TAB PO TID PRN Discharge Statement: "Patient was advised to return to the ER or call 911 if any headaches, dizziness, shortness of breath, chest pain, abdominal pain, bleeding, fevers, or worsening of medical condition. Patient was counseled about treatment plan, medications, possible side effects, patientverbalized understanding. All questions were answered to the best of my ability. This discharge took greater then 30 minutes in planning, reviewing documentation, counseling the patient, and discussing with other team members." ASSESSMENT ASSESSMENT Assessment LLOYD SWANN MD Aug 18, 2025 12:32
[2025-08-18] MEDS ORDERED: IBUP-1454 PO (12:33)
[2025-08-18] MEDS ORDERED: PANT40TA2 PO (12:35)
--- NOTE | 2025-08-18 22:33 | DVHPN2 ---
Subjective Patient is seen and examined at bedside. The patient is still complain of chest pain. Reviewed: Care Plan, H&P, Labs, Medications, Previous Orders, Radiology Changes from previous H/P or p: No Changes Eyes: No Pain, No Vision change, No Conjunctivae inflammation, No Eyelid inflammation, No Other, No Redness ENT: No Ear pain, No Ear discharge, No Nose pain, No Nose discharge, No Nose congestion, No Mouth pain, No Mouth swelling, No Throat pain, No Throat swelling, No Other Cardiovascular: Chest Pain; No Palpitations, No Orthopnea, No Paroxysmal Noc. Dyspnea, No Edema, No Lt Headedness, No Other Respiratory: No Cough, No Dry, No Shortness of breath, No SOB with excertion, No Wheezing, No Hemoptysis, No Pleuritic Pain, No Sputum, No Other Gastrointestinal: Nausea; No Vomiting, No Abdominal Pain, No Diarrhea, No Constipation, No Melena, No Hematochezia, No Other Genitourinary: No Dysuria, No Frequency, No Incontinence, No Hematuria, No Retention, No Other Musculoskeletal: No other, No neck pain, No shoulder pain, No arm pain, No back pain, No hand pain, No leg pain, No foot pain Skin: No Rash, No Lesions, No Jaundice, No Bruising, No Other Objective Vitals Vital Signs Date Time Temp Pulse Resp B/P (MAP) Pulse Ox O2 Delivery O2 Flow Rate FiO2 08/18/25 21:00 98.1 64 18 120/74 (89) 99 98.1 08/18/25 20:00 Room Air* 0 21 Intake/Output Intake and Output 08/18/25 07:00 Intake Total 1320 ml Balance 1320 ml Intake Oral 1320 ml # Voids 4 # Bowel Movements 2 General Appearance: Alert, Oriented X3, Cooperative, No acute distress HEENT: Atraumatic, PERRLA, EOMI, Mucous membr. moist/pink Neck: Supple Lungs: Clear to auscultation, Normal air movement Cardiovascular: Regular rate, Normal S1, Normal S2, No murmurs, Gallops, Rubs Abdomen: Normal bowel sounds, Soft, No tenderness Neuro: Cranial nerves 3-12 NL Psych/Mental Status: Mental status NL Medications Current Medications Medications Dose Ordered Sig/Pablito Route Start Time Stop Time Status Last Admin Dose Admin Acetaminophen/ Hydrocodone Bitart 1 tab Q4HP PRN PO 08/16/25 08:30 08/17/25 22:26 1 TAB Ondansetron HCl 4 mg Q4HP PRN IV 08/16/25 08:30 Docusate Sodium 100 mg BIDPRN PRN PO 08/16/25 08:30 Acetaminophen 650 mg Q6HP PRN PO 08/16/25 08:30 Nitroglycerin 0.4 mg Q5MINP PRN SL 08/16/25 08:30 08/16/25 22:15 0.4 MG Morphine Sulfate 2 mg Q30M PRN IV 08/16/25 08:30 Aspirin 81 mg DAILY PO 08/17/25 10:00 08/18/25 10:24 81 MG Atorvastatin Calcium 40 mg HS PO 08/16/25 22:00 Pantoprazole Sodium 40 mg BID IV 08/16/25 22:00 08/17/25 21:45 40 MG Guaifenesin/ Dextromethorphan 10 ml Q6HPRN PRN PO 08/16/25 13:00 Ergocalciferol 50,000 unit Q7D PO 08/17/25 09:00 08/17/25 09:46 50,000 UNIT Laboratory Results Laboratory Tests 08/17/25 05:37 Urinalysis Test 08/17/25 10:20 Urine Color Light-yellow (Yellow) Urine Clarity Turbid (Clear) H Urine pH 6.0 (5.0-9.0) Urine Specific [place] 1.013 (1.001-1.035) Urine Protein Negative (Negative) Urine Ketones Negative (Negative) Urine Blood Negative /uL (Negative) Urine Nitrite Negative (Negative) Urine Bilirubin Negative (Negative) Urine Urobilinogen Normal mg/dL (Negative) Urine Leukocyte Esterase 1+ /uL (Negative) Urine RBC 2 /hpf (0 - 4) Urine Microscopic WBC 15 /HPF (0-5) H Urine Squamous Epithelial Cells Mod /hpf (<5) Urine Bacteria None seen /hpf (None Seen) Urine Glucose Normal mg/dL (Normal) Labs and/or images reviewed: Labs reviewed by me Assessment/Plan Assessment/Plan Noncardiac chest pain - likely GERD Rule out ACS Ruled out pericarditis Situational/vasovagal syncope 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 Continuing with pain medication for chest pain. Still waiting for echo report Discharge planning when echo report done. This medical document was created using an electronic medical record system with [employer] direct computerized dictation system. Although this document has been carefully reviewed, there may still be some phonetic and typographical errors. These areas are purely typographical due to imperfections of the software programs, and do not reflect any compromise in the patient's medical care. Plan discussed with: Patient My Orders Orders - LLOYD SWANN MD Procedure Category Date Status Time Discharge DISCHARGE 08/18/25 Transmitted 12:33 Date of Service: Aug 18, 2025 Billing Provider: LLOYD SWANN MD Common Visit Codes: [id number] INP/OBS CARE(HIGH) LLOYD SWANN MD Aug 18, 2025 22:33
[2025-08-18] MEDS: PANTOPRAZOLE 40 MG TAB PO SCH (22:52)
[2025-08-19 01:00] VITALS: BP 91/55; PULSE 75; RESP 18; TEMP 97.3; O2SAT 97
[2025-08-19 04:45] VITALS: BP 102/55; PULSE 73; RESP 19; TEMP 97.9; O2SAT 97
[2025-08-19 08:00] VITALS: PULSE 76
[2025-08-19 08:34] VITALS: BP 113/74; PULSE 76; RESP 20; TEMP 98.7; O2SAT 97
--- NOTE | 2025-08-19 10:12 | DVHDS2 ---
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 Asthma with no exacerbation Ovarian cyst Labs/Diagnostic Data: Laboratory Results Test 08/17/25 10:20 08/17/25 05:39 08/17/25 05:37 08/16/25 13:19 Urine Color Light-yellow (Yellow) Urine Clarity Turbid (Clear) Urine pH 6.0 (5.0-9.0) Urine Specific [place] 1.013 (1.001-1.035) Urine Protein Negative (Negative) Urine Ketones Negative (Negative) Urine Blood Negative /uL (Negative) Urine Nitrite Negative (Negative) Urine Bilirubin Negative (Negative) Urine Urobilinogen Normal mg/dL (Negative) Urine Leukocyte Esterase 1+ /uL (Negative) Urine RBC 2 /hpf (0 - 4) Urine Microscopic WBC 15 /HPF (0-5) Urine Squamous Epithelial Cells Mod /hpf (<5) Urine Bacteria None seen /hpf (None Seen) Urine Glucose Normal mg/dL (Normal) Troponin I High Sensitivity < 3 ng/L (</=34) White Blood Count 5.8 10^3/uL (4.4-10.8) Red Blood Count 4.14 10^6/uL (4.0-5.20) Hemoglobin 13.2 g/dL (12.2-16.2) Hematocrit 38.1 % (36.0-46.0) Mean Corpuscular Volume 92.0 fL (80.0-100.0) Mean Corpuscular Hemoglobin 31.9 pg (28.0-32.0) Mean Corpuscular Hemoglobin Concent 34.6 g/dL (32.0-36.0) Red Cell Distribution Width 13.2 % (11.8-14.3) Platelet Count 332 10^3/uL (140-450) Mean Platelet Volume 7.3 fL (6.9-10.8) Neutrophils (%) (Auto) 50.0 % (37.0-80.0) Lymphocytes (%) (Auto) 38.0 % (10.0-50.0) Monocytes (%) (Auto) 9.1 % (0.0-12.0) Eosinophils (%) (Auto) 2.4 % (0.0-7.0) Basophils (%) (Auto) 0.5 % (0.0-2.0) Neutrophils # (Auto) 2.9 10 ^3/uL (1.6-8.6) Lymphocytes # (Auto) 2.2 10 ^3/uL (0.4-5.4) Monocytes # (Auto) 0.5 10 ^3/uL (0-1.3) Eosinophils # (Auto) 0.1 10 ^3/uL (0-0.8) Basophils # (Auto) 0 10 ^3/uL (0-0.2) Nucleated Red Blood Cells 0.1 % Sodium Level 140 mmol/L (136-145) Potassium Level 3.8 mmol/L (3.5-5.1) Chloride Level 108 mmol/L (98-107) Carbon Dioxide Level 24 mmol/L (20-31) Anion Gap 8 (5-15) Blood Urea Nitrogen 9 mg/dL (9-23) Creatinine 0.73 mg/dL (0.550-1.02) Glomerular Filtration Rate Calc 118 mL/min (>90) BUN/Creatinine Ratio 12.3 (10.0-20.0) Serum Glucose 86 mg/dL (74-106) Calcium Level 8.4 mg/dL (8.7-10.4) Total Bilirubin 0.7 mg/dL (0.2-1.0) Aspartate Amino Transferase (AST) 16 U/L (13-40) Alanine Aminotransferase (ALT) 20 U/L (7-40) Alkaline Phosphatase 54 U/L (46-116) Total Protein 6.2 g/dL (5.7-8.2) Albumin 3.8 g/dL (3.2-4.8) Prothrombin Time 11.7 sec (9.3-11.8) Prothrombin Time INR 1.12 (0.9-1.15) Activated Partial Thromboplast Time 30.5 SEC (24.5-34.5) Direct Bilirubin 0.2 mg/dL (<0.3) Vitamin B12 Level 633 pg/mL (211-911) Vitamin D 25-Hydroxy 10.4 ng/mL (30.0-100) Test 08/16/25 12:38 08/16/25 07:11 08/16/25 04:38 08/16/25 03:49 Urine Opiates Screen Neg (NEGATIVE) Urine Fentanyl Screen Neg (NEGATIVE) Urine Barbiturates Screen Neg (NEGATIVE) Urine Phencyclidine Screen Neg (NEGATIVE) Urine Amphetamines Screen Neg (NEGATIVE) Urine Benzodiazepines Screen Neg (NEGATIVE) Urine Cocaine Screen Neg (NEGATIVE) Urine Cannabinoids Screen Neg (NEGATIVE) Erythrocyte Sedimentation Rate 5 mm/hr (0-20) Hemoglobin A1c 4.7 % A1C (<5.7) Phosphorus Level 2.9 mg/dL (2.4-5.1) Magnesium Level 2.1 mg/dL (1.6-2.6) C-Reactive Protein High Sensitivity 0.06 mg/dL (<1.0) Triglycerides Level 95 mg/dL (< 150) Cholesterol Level 154 mg/dL (< 200) LDL Cholesterol 88 mg/dL (< 100) HDL Cholesterol 58 mg/dL (40-59) Thyroid Stimulating Hormone (TSH) 2.41 uIU/mL (0.55-4.78) D-Dimer, Quantitative < 0.19 mg/L FEU (0.0-0.49) B-Type Natriuretic Peptide 3.37 pg/mL (0-100) Other Laboratory Tests 08/17/25 05:37 Brief Hx & Hospital Course: This is a 24 years old female with past medical history of asthma, Kawasaki disease as a child came to emergency department because of chest pain. She woke up from her sleep and had severe dressed pain she had drink water to alleviate the pain but no successful patient said her pain worsening prompting her come to hospital. The patient described the pain as sharp and transition to burning pain associated with nauseated. The patient was admitted for chest pain to rule out pericarditis. Her EKG is normal. Her troponin level has one set above 97 but other than that all the other was normal. Cardiology Physician Assistant see the patient. Cardiology Physician Assistant's impression is this is noncardiac chest pain probable secondary to GERD. Echo is normal showed EF of 65% normal RV function, RV appears enlarged, normal atrium, no severe valve abnormalities noted. The patient will be discharged home today. Advised the patient to follow up with primary care physician 1-2 weeks. Follow up with junior paralegal as needed per schedule. Activity as tolerated. Diet per home diet. Physical exam: HEENT: Normocephalic atraumatic pupils equal react to light and accommodation. Extraocular muscles intact, conjunctiva pink, oropharynx moist, no thrush, no exudate. Lymphatic: No lymphadenopathy Cardiovascular exam: S1, S2 was heard. No murmurs, rubs, gallops Lung: Clear on auscultation bilaterally, no wheeze, rale, rhonchi. GI: Abdominal soft, nondistended, nontenderness, positive bowel sounds. Extremity: No crepitus, cyanosis, edema. Pedal pulses present bilateral. Full range of motion. Skin: Normal turgor, no rash. Psych: Alert, oriented x3. Neurology: No focal deficits, cranial nerve II to XII grossly intact. This medical document was created using an electronic medical record system with [employer] direct computerized dictation system. Although this document has been carefully reviewed, there may still be some phonetic and typographical errors. These areas are purely typographical due to imperfections of the software programs, and do not reflect any compromise in the patient's medical care. 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 Patient was counseled about treatment plan, medications, possible side effects, patientverbalized understanding. All questions were answered to the best of my ability. This discharge took greater then 30 minutes in planning, reviewing documentation, counseling the patient, and discussing with other team members." ASSESSMENT ASSESSMENT Assessment atypical chest pain Date of Service: Aug 19, 2025 Billing Provider: LLOYD SWANN MD Common Visit Codes: [id number] INP/OBS CARE(HIGH) LLOYD SWANN MD Aug 19, 2025 10:12
--- NOTE | 2025-08-19 13:10 | DVHSR ---
APPROVED REPORT EXAM: Two-dimensional and M-mode echocardiogram with Doppler and color Doppler. Blood Pressure: 94/54 mmHg INDICATION Elevated trops, chest pain RISK FACTORS Height: 63, Weight: 170 DIMENSIONS LVDd5.1 (3.8-5.7cm)LA (2D)3.9 (1.9-4.0cm)Aortic Root3.2 (2.0-3.7cm) LVDs3.1 (2.5-4.0cm)LA (MM) (1.9-4.0cm)Aortic Cusp Exc1.8 (1.5-2.0cm) EF (%) 70.0 (55-70%)Rt. Atrium4.1 (1.9-4.0cm)Asc. Aorta cm IVSd0.8 (0.7-1.1cm)RV (D) (1.8-2.4cm) PWd1.0 (0.7-1.1cm) Mitral Valve MitralMitral Stenosis E wave0.90m/sMV Mean GR.mmHg A wave0.67m/sMV Peak GR.mmHg E/A ratio1.32D MVAcm2 DECEL [id number] 1/2 [id number] IVRTmsDop MVA5.84cm2 Aortic Valve Aortic ValveAortic Stenosis V11.03m/Rhea Mean GR.3mmHg V21.29m/Rhea Peak GR.7mmHg LVOT Diameter1.9 (1.8-2.4cm)Doppler AVA2.26cm2 Pulmonic Valve V20.79m/s Tricuspid Valve TR Velocity1.75m/s [id number] Conclusion lvef 65% normal RV fucntin, RV appears enlarged normal atri no severe vavle abnormalities noted
--- NOTE | 2025-08-19 15:59 | DVHPNRES ---
Progress Note Date Seen: Aug 19, 2025 Resident Creating Document: RTAMAINE ROCK RESIDENT Medical Necessity Reason Pt with a Central, PICC or Fol: No Subjective Review of Systems Laura Jones is a 24-year-old female patient who presents to the ED with chief complaint of constant squeezing/burning retrosternal chest pain which woke her up at 2:30 a.m. on 08/16/2025 and lasted until 6:30 a.m. when she visited the emergency department and received medication(received Maalox and lidocaine, four aspirin in two Tylenol) intensity was 9-10/10, improved mildly when applying pressure to her chest and completely relieved with medication provided in emergency department, no worsening precipitating factors, associated with palpitation. Patient also reports episode of loss of consciousness after she was given in peripheral IV with prodromes (blurry vision, dizziness, feeling faint). She says that she has never felt these symptoms previously. Denies fever, chills, sick contacts, dyspnea, flu-like symptoms or motor or sensory deficits. Cardiology was consulted for elevated troponin (<3-97-<3). Past medical history: Asthma, Kawasaki in three opportunities (age [age], [age] in 11 years of age), per patient she was treated immediately, ovarian cyst, she presents normal periods (periods last five days, 30 day cycle, she has a copper IUD) she is sexually active with one partner for the past two years negative STIs (she tests once every three months). Surgical history: Denies Family history: Breast cancer in grandmother Social history: Lives in [place] with family (next of kin is mother). Denies current tobacco, alcohol and other drug abuse Allergies: Denies Home medication: Albuterol PRN Patient seen and examined at bedside. Currently has no new complaints. ECHO report: lvef 65% normal RV function, RV appears enlarged normal atria no severe valve abnormalities noted Objective vital signs Vital Sign Date Time Temp Pulse Resp B/P (MAP) Pulse Ox O2 Delivery O2 Flow Rate FiO2 08/19/25 08:34 98.7 76 20 113/74 (87) 97 98.7 08/19/25 08:00 Room Air* 0 21 Total Intake and Output 08/18/25 08/18/25 08/19/25 15:00 23:00 07:00 Intake Total 650 ml 200 ml Balance 650 ml 200 ml Examination Patient lying in bed, in no acute distress General: Lucid, afebrile, mucosae are moist Cardiovascular: Normal S1 and S2. No murmurs, gallops or rubs Respiratory: Normal ventilation mechanics. Clear lung sounds on auscultation Abdomen: Soft, nontender, no organomegaly, normal bowel sounds MSK/skin: Mobilizes 4 limbs. Skin is dry and warm Neurological: Oriented in 3 spheres. No motor no sensitive deficits. 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 Troponin presents one mildly elevated value (<3 - 97 - <3). Noncardiac chest pain (burning squeezing which was continues in lasted for 4 hours and improved with pressure and Maalox/lidocaine) Echocardiogram: lvef 65% normal RV fucntin, RV appears enlarged normal atria no severe vavle abnormalities noted Mild leukocytosis (11.4) ESR 5, CRP 0.06 (both negative). BNP and D-dimer is negative as well. Chest pain likely secondary to GERD or costochondritis. Continue with pantoprazole. Goals of care discussed with patient for over 18 minutes: Full code status Discussed plan with Dr. Falcon and Jerica, patient, family and nurses: Patient currently on Telemetry. Echocardiogram report normal, hold off on therapeutic heparin, chest pain is likely secondary to GERD or costochondritis. Patient can be safely DC with f/u appt, patient is aware of the results of the ECHO Plan discussed with: Patient Visit Coding Cardiology RES Date of Service: Aug 19, 2025 Billing Provider: TREY FALCON Sr., MD Cardiology Common Codes: [id number] CARE 30-74 MIN [place] RESIDENT Aug 19, 2025 15:59
== END 2025-08-19 10:22 | disposition home or self-care (01) | DRG 243 ==
LOC: ER 03:22 → OVERFLOW 08:24 → TELE-EAST 23:41
PROVIDERS: ADMIT Internal Medicine; ATTEND Internal Medicine
DX: K21.9 Gastro-esophageal reflux disease without esophagitis (principal); I24.9 Acute ischemic heart disease, unspecified; D72.829 Elevated white blood cell count, unspecified; J45.909 Unspecified asthma, uncomplicated; R55 Syncope and collapse; R79.89 Other specified abnormal findings of blood chemistry; Z80.3 Family history of malignant neoplasm of breast; Z97.5 Presence of (intrauterine) contraceptive device
CPT/HCPCS: 36415; 71045; 80048; 80053; 80061; 80076; 80307; 81001; 82306; 82607; 83036; 83735; 83880; 84100; 84443; 84484; 85025; 85379; 85610; 85652; 85730; 86141; 93005; 93306; 94640; 96374; G0378; J2405; J2470